=== PATIENT | female | born 1950 | race Caucasian/White ===

== ENCOUNTER 2018-10-14 10:13 | Inpatient (IN) | payer OTHER ==
[~2018-10-14] VITALS: Ht 160 cm; Wt 54.1 kg
--- NOTE | ~2018-10-14 | HC ---
[facility] [place] [address] CONSULTATION Name: TRENA PIERRE Room #: 217-P ADM IN M.R.#: [id number] Admission: 10/14/18 ������������������ Attend Phys: David Cohen MD Discharge: ������������������ Date of : 46 Report #: [id number] THIS REPORT FOR: //name// CC: David Sierra DATE OF SERVICE: 10/15/2018 TYPE OF REPORT: Wound care consultation. LOCATION: [facility]. REASON FOR CONSULTATION: Ulcers, right heel; abrasion of left knee and posterior right calf in a woman with history of cervical fracture and peripheral vascular disease of lower extremity, status post right lower extremity femoral popliteal bypass. HISTORY OF PRESENT ILLNESS: The patient is a 68-year-old woman nondiabetic who has a history of cervical fracture with extensive spinal surgery followed by a long and complicated rehabilitation. The patient has had ischemia of her right foot requiring femoral popliteal bypass. The patient has had increasing debility and immobility and is [facility] with increasing weakness, decreased mental status and decreased p.o. intake. Wound care was consulted due to noted abrasions of her right posterior calf, her left knee and her right heel. She has had a recent femoral popliteal bypass surgery for ischemia to her right foot. Wound care team was consulted. PAST MEDICAL HISTORY: 1. Cervical fracture requiring surgery approximately 6 months ago. 2. Severe peripheral vascular disease of the lower extremities with femoral popliteal bypass, right leg. 3. Chronic tobaccoism. 4. History of gastric bypass. 5. History of colon cancer with resection and chemotherapy. 6. Hypertension. REVIEW OF SYSTEMS: Poor appetite, generalized weakness, change in mental status. PHYSICAL EXAMINATION: GENERAL: Shows a thin, chronically ill-appearing elderly woman, a friend is in attendance. The patient is wearing a cervical collar. Mucous membranes are moist. LUNGS: Respirations are unlabored. ABDOMEN: Soft. EXTREMITIES: The patient has an abrasion of her left upper arm. The patient [facility] [address] [place] [address] CONSULTATION Name: TRENA PIERRE Room #: [address] [place] [address] IN .R.#: [id number] Admission: 10/14/18 ������������������ Attend Phys: David Cohen MD Discharge: ������������������ Date of : 46 Report #: [id number] has incision in the right groin with possible seroma, ultrasound ordered. Examination of both lower extremities shows skin to be slightly red. There are 2 small 0.5 x 0.5 cm open wound of the right posterior calf. There is a small stage 3, very tender ulcer of the right heel measuring 1.2 x 0.5 cm. Distal pulses are not palpable. There is a small abrasion of the left knee with a dry black eschar surrounded by some redness. IMPRESSION: 1. Debility and immobility. 2. Tobaccoism. 3. Cervical fracture with cervical collar. 4. Acute renal failure. 5. Protein-calorie malnutrition. 6. Abrasion, left upper arm. 7. Right heel stage 3 pressure ulcer, tender with a vascular component. 8. Severe peripheral vascular disease of bilateral lower extremities, status post right femoral popliteal bypass. 9. Abrasion of left knee. 10. Small abrasion to the right posterior calf. PLAN: We will dress all the wounds of her left upper arm, right posterior calf, left knee with topical Bactroban ointment and Xeroform dressing, bilateral foam boots, Offload with low air loss mattress. Ultrasound of the right groin shows a simple 3.8 x 1.3 x 2.3 cm fluid collection without pseudoaneurysm. We will continue to observe the right groin. Ultrasound of bilateral lower extremities has been ordered to assess her arterial status to both legs. Wound care team will follow her wounds. ��������������������������������������������� ���������������������������������������� By: ��������������������������������������������� 1536 0206 Mac Somers MD /nt
--- NOTE | ~2018-10-14 | HC ---
[facility] [address] CONSULTATION Name: TRENA PIERRE Room #: 217-P ADM IN M.R.#: [id number] Admission: 10/14/18 ������������������ Attend Phys: David Cohen MD Discharge: ������������������ Date of : 46 Report #: [id number] THIS REPORT FOR: //name// CC: David Sierra DATE OF SERVICE: 10/14/2018 ATTENDING PHYSICIAN: Dr. Cohen. REASON FOR CONSULTATION: Acute renal failure, dehydration and electrolyte abnormalities. HISTORY OF PRESENT ILLNESS: This 68-year-old patient has had a progressive downhill course over the last 6 months or so. She fell, broke her neck, ended up having extensive cervical spine surgery at [facility]. She has had a slow and difficult rehabilitation complicated by ischemia to her right foot requiring right fem-pop bypass. She has had progressive debility and over the last week or so has had increasing weakness, decreased mental status and decreased p.o. intake. She comes to the Emergency Room. Her creatinine is 1.1, which is actually rather elevated given her vanishingly small muscle mass. Serum sodium is 153 and there is evidence of severe volume depletion. PAST MEDICAL HISTORY: Long-term heavy smoker with diffuse vascular disease. She has had previous gastric bypass and large volume weight loss, previous colon cancer with resection and chemotherapy, now thought to be in remission, COPD, history of hypertension as well. Home medication list is not currently available. SOCIAL HISTORY: Heavy smoker as mentioned, now living in extended care facility. FAMILY HISTORY: Strongly positive for various forms of cancer. REVIEW OF SYSTEMS: GENERAL: She has done really poorly. EYES: Her vision seems to be okay. ENT: Hearing okay, not swallowing much. ENDOCRINE: No diabetes. RESPIRATORY: Easily short-winded. CARDIAC: No angina or myocardial infarction. She does have history of atrial fib and she has been on Eliquis for some time. GASTROINTESTINAL: Very poor appetite, has not been taking much in. GENITOURINARY: No difficulty with her stream. No dysuria or hematuria. NEUROLOGIC: Generalized weakness, delirium and confusion. MUSCULOSKELETAL: She has got diffuse chronic pain and has been a long time [facility] [address] [place] [address] CONSULTATION Name: TRENA PIERRE Room #: 217-P ADM IN M.R.#: [id number] Admission: 10/14/18 ������������������ Attend Phys: David Cohen MD Discharge: ������������������ Date of : 46 Report #: [id number] habitual user of opiates. LABORATORY DATA: Platelets are 202, Hemoglobin is 13.4, white count 23.3, 1% bands. Urinalysis was benign. Sodium 153, potassium 2.9, chloride 111, bicarbonate 23, creatinine 1.1, BUN 28, magnesium 2. ASSESSMENT AND PLAN: 1. Acute renal failure. Creatinine is only 1.1, but is obviously rather high given her vanishing little muscle mass and this is likely due to at least partially to volume depletion as well as partially related to underlying vascular or renal disease as a possibility. IV fluids are being given. We will need to obtain her medication list from home. 2. Hypokalemia. We will replete. 3. History of gastric bypass. There could be other nutritional deficiencies of course. Her albumin is only 1.7 and this is in the presence of likely volume depletion and she is obviously very malnourished. 4. Elevated troponin I. Cardiology has seen the patient. 5. History of fem-pop bypass with diffuse vascular disease. 6. Recent history of cervical spine fracture status post fusion surgery. ��������������������������������������������� ���������������������������������������� By: ��������������������������������������������� 1805 0141 Meño Lemus MD /nt
--- NOTE | ~2018-10-14 | HC ---
[facility] [place] [address] [place] [address] CONSULTATION Name: TRENA PIERRE Room #: 217-P ADM IN M.R.#: [id number] Admission: 10/14/18 ������������������ Attend Phys: David Cohen MD Discharge: ������������������ Date of : 48 Report #: [id number] THIS REPORT FOR: //name// CC: David Sierra HISTORY OF PRESENT ILLNESS: The patient is a 68-year-old female who is generally seen at [facility]. She is a poor historian and may be a part of reason for admission was some questionable altered mental status. She has a cervical neck collar on. Apparently, has peripheral vascular disease with what looks like a recent right lower extremity bypass, I do not have these records and equivocal troponin with also other electrolyte abnormalities. Nonspecific EKG changes are noted. She denies chest pain. No syncope or presyncope. It is not clear, I think she lives in an assisted living from what I can tell. LABORATORY DATA: Her D-dimer was elevated at 1.45. Apparently has hypernatremia, sodium is 153, Potassium 2.9, creatinine 1.1, SGOT 67, alkaline phosphatase 125. Troponin was 1.92. Lactate was 1.2. H and H 13 and 41, white count 23.3, platelets 282. Influenza A and B antigens are negative. TSH and folate, vitamin D are pending. UA appears to be relatively benign. There was a CT of the chest done without contrast, small bilateral pleural effusions, atelectasis. Low density thyroid abnormality. The abdomen was also performed and the bladder possibly some mild colitis, benign thyroid cyst it appears. There is a small collection of fluid at the right femoral artery graft site. PAST MEDICAL HISTORY: Chronic pain, on pain medications; peripheral vascular disease; delirium; possible hypovolemia it appears; DJD; history of cellulitis; hypertension; COPD; suspect prior tobacco use. MEDICATIONS: Eliquis 2.5 b.i.d., amlodipine 2.5, Tylenol, Welchol, dronabinol, Prozac, Lasix 40, Lyrica, metoprolol tartrate 25, oxycodone, prednisone, Carafate, levothyroxine, carisoprodol 250. SOCIAL HISTORY: I believe she lives in assisted living. I do not know if there is family involved. FAMILY HISTORY: Not obtainable. REVIEW OF SYSTEMS: Difficult to ascertain here as she states she has chronic pain. She denies chest pain. PHYSICAL EXAMINATION: GENERAL: She is verbalizing, somewhat oriented. VITAL SIGNS: Blood pressure 160/80, pulse 90. HEENT: Eyes reveal xanthelasmas. Pharynx is clear, slightly dry mucous [address] [address] CONSULTATION Name: TRENA PIERRE Room #: 217-P [facility] IN M.R.#: [id number] Admission: 10/14/18 ������������������ Attend Phys: David Cohen MD Discharge: ������������������ Date of : 48 Report #: [id number] membranes. NECK: Has preserved upstrokes without JVD. There is a cervical collar. LUNGS: Prolonged. CARDIAC: Distant heart tones, S1, S2. Faint holosystolic murmur noted. ABDOMEN: Slightly protuberant, nontender. EXTREMITIES: Do reveal some mild edema. I cannot palpate distal pulses. There are vascular markings that look as somewhat ischemic or possible some distal embolization. Question of cholesterol emboli syndrome, I do not know the duration or how long ago the surgery, but fairly recently. SKIN: Warm and dry with the exception of the lower extremities as noted. There are not ulcers, but appears to be ischemic distal changes. Feet are not cold. NEUROLOGIC: Appears to be nonfocal. MUSCULOSKELETAL: Generalized arthritic changes. I did not ambulate him. ASSESSMENT: 1. Mental status change with hypernatremia. 2. Peripheral vascular disease with recent right lower extremity bypass. We need to obtain records. 3. Possible cholesterol emboli syndrome or distal ischemia based on the demarcation and physical exam findings. 4. Hypertension. 5. Chronic obstructive pulmonary disease. 6. Hyperlipidemia. 7. History of cellulitis and sepsis. 8. Hyperkalemia. 9. Chronic pain. 10. Recent C-spine injury from fall. 11. Possible non-ST elevation myocardial infarction with slight elevation in troponin. RECOMMENDATIONS AND PLAN: Correct electrolytes. Try to obtain some records. Repeat a troponin in the morning and echo and EKG in the morning. Certainly need stabilization of this patient and need some review of the old records before any intervention would be indicated. I would try not to be invasive here based on the fact it looks like possibly some of this lower extremity issues is due to instrumentation or cholesterol emboli. Initiate statin therapy, aspirin, renal consult. There is some mention of a family and I will discuss in the a.m. ��������������������������������������������� ���������������������������������������� By: ��������������������������������������������� 04 39 Meño Sultana MD, FACC /nt
[2018-10-14 10:13] VITALS: BP 137/65
[~2018-10-14 10:13] MED LIST: CARAFATE 1 GM TA1 G1 PO; CARISOPRODOL250 MG PO; COLACE100 MG PO; ELIQUIS2.5 MG PO; LASIX 40 MG TAB40 M2 PO; LIPITOR80 MG PO; LOPRESSOR25 PO; MARINOL10 MG PO; MIRALAX17 GM PO; NORVASC2.5 MG PO; PERCOCET PO; PREDNISONE 5 MG5 M1 PO; PRO-STAT LIQUID30 M1 PO; TYLENOL325 MG PO; VITAMIN D5000 UNIT PO; WELCHOL 625 MG625 MG PO
[2018-10-14 10:46] LABS: URINE BILIRUBIN NEGATIVE (Negative); URINE BLOOD NEGATIVE (Negative); URINE CLARITY CLEAR; URINE COLOR YELLOW; URINE GLUCOSE-RANDOM* NEGATIVE (Negative); URINE KETONES 2+ (Negative); URINE LEUKOCYTES-REFLEX NEGATIVE (Negative); URINE NITRITE-REFLEX NEGATIVE (Negative); URINE PROTEIN (DIPSTICK) NEGATIVE (Negative); URINE UROBILINOGEN 0.2 E.U./dl (0.2-1.0)
[2018-10-14 11:48] LABS: HEMATOCRIT 41.8 % (37.0-47.0); HEMOGLOBIN 13.4 gm/dL (12.0-15.0); MCH 34.1 pg (26.0-34.0); MCHC 32.2 g/dL (28.0-37.0); RBC 3.94 mil/uL (4.20-5.00); WBC 23.3 thou/uL (4.0-11.0)
[2018-10-14 12:16] LABS: ABSOLUTE NEUTROPHILS 20.7 thou/uL (1.4-8.2)
[2018-10-14 12:17] LABS: ANISOCYTOSIS 1+; PLATELET COUNT 202 thou/uL (150-400); PLATELET ESTIMATE NORMAL
[2018-10-14 14:22] LABS: CALCIUM 8.6 mg/dL (8.5-10.1); CREATININE 1.1 mg/dL (0.6-1.0)
[2018-10-14 14:24] LABS: POTASSIUM 2.9 mmol/L (3.5-5.1)
[2018-10-14 14:27] LABS: ALBUMIN 1.7 g/dL (3.4-5.0); DIRECT BILIRUBIN 0.3 mg/dL (<0.1-0.3); TOTAL BILIRUBIN 0.5 mg/dL (<0.1-1.0); TOTAL PROTEIN 5.7 g/dL (6.4-8.2)
[2018-10-14 14:39] LABS: TROPONIN-I 1.92 ng/mL (<0.06)
--- NOTE | 2018-10-14 16:17 | NUR ---
VASCULAR ACCESS CONSULTED FOR MIDLINE. PT'S LABS,MEDS,HISTORY REVIEWED. DISCUSSED BENEFITS AND RISKS WITH PT,VERBALIZED UNDERSTANDING AND GAVE VERBAL CONSENT TO PROCEDE. PT WAS PREPPED AND DRAPED FOR MAX BARRIER PRECAUTIONS. CORINNA BRACHIAL WAS ONLY VESSEL LARGE ENOUGH TO PLACE ML. 1% LIDOCAINE GIVEN SQ. 4FR POWER MIDLINE TRIMMED TO 12CM INSERTED TO 0CM. LABS DRAWN. ML SECURED AND RELEASED FOR IMMEDIATE USE PER PROTOCOL TO BRAIN IN ER.
[2018-10-14 17:01] VITALS: BP 149/62
[2018-10-14 17:05] VITALS: BP 132/76
--- NOTE | 2018-10-14 17:31 | EKG ---
[address] [address] ELECTROCARDIOGRAM REPORT Name: KATIE PIERREYN Room #: 217-P ADM IN M.R.#: [id number] ������������������ Admission: 10/14/18 ������������������ Attend Phys: David Cohen MD Discharge: ������������������ Date of : 46 Report #: [id number] ����������������������������������������������������������������� [id number] THIS REPORT FOR: //name// [facility] ED Test Date: 2018-10-14 Test Time: 10:55:10 Pat Name: TRENA PIERRE Department: Room: 217 Gender: F Sales Representative [employer]: KURTIS : 1950 Requested By: Tahir Newsome Order Number: [id number] MD: Roberto Carlos Varghese Measurements Intervals [place] Rate: 89 P: 57 [place]: 119 QRS: 66 QRSD: 86 T: 149 QT: 343 QTc: 418 Interpretive Statements Sinus rhythm Atrial premature complexes Borderline short [place] interval Nonspecific ST and T wave abnormality No previous ECG available for comparison Electronically Signed On 10-14-2018 17:31:11 DIE MAINTENANCE TECHNICIAN by Roberto Carlos Varghese [email or web address] ��������������������������������������������� <ELECTRONICALLY SIGNED> ���������������������������������������� By: Roberto Carlos Varghese MD, [facility] ��������������������������������������������� 10/14/18 1731 D: [id number] Roberto Carlos Varghese MD, FACC /EPI
[2018-10-14 17:37] VITALS: BP 102/63
[2018-10-14] MEDS ORDERED: TYLENOL325 MG PO (17:46)
[2018-10-14 18:00] VITALS: BP 138/82
[2018-10-14] MEDS ORDERED: PROZAC20 MG PO (18:21)
[2018-10-14] MEDS ORDERED: LYRICA 50 MG50 MG PO (18:25)
[2018-10-14] MEDS ORDERED: PROTONIX40 M1 PO (18:58)
[2018-10-14] MEDS ORDERED: SYNTHROID25 MC1 PO ×2 (19:01)
[2018-10-14 19:18] VITALS: BP 160/84
[2018-10-15 00:14] VITALS: BP 125/65
--- NOTE | 2018-10-15 02:21 | NUR ---
ASSUMED CARE 1899. VSS. ASSESSMENT CHARTED. PT ALERT TO SELF/PLACE CONFUSED AND FORGETFUL AT TIMES. SISTER AND NEICE AT BEDSIDE AT BEGINNNING FOR SHIFT. PT C/O GENERALIZED BODY PAIN, URGENT CARE TECHNICIAN NOTIFIED, ORDERS GIVEN PRN PAIN MEDS PER EMAR. PT HAS C-COLLAR IN PLACE- PAST FALL AND SPINAL FUSION 04/29. MULTIPLE BRUISING AND SCABS, SKIN TEAR/HEEL ULCER- ALL PICS DOCUMENTED WOUND CARE CONSULTED. KRIS SAW PATIENT THIS SHIFT. TROPONIN TRENDING DOWN. PLAN FOR LABS THIS AM. WILL CONTINUE TO MONITOR AND WITH POC.
[2018-10-15 03:39] LABS: ALBUMIN 1.2 g/dL (3.4-5.0); CALCIUM 7.2 mg/dL (8.5-10.1); CREATININE 0.9 mg/dL (0.6-1.0); MAGNESIUM 1.7 mg/dL (1.8-2.4); PHOSPHORUS 2.6 mg/dL (2.5-4.9); POTASSIUM 3.8 mmol/L (3.5-5.1)
[2018-10-15 04:29] LABS: HEMATOCRIT 34.4 % (37.0-47.0); MCH 33.5 pg (26.0-34.0); MCHC 31.8 g/dL (28.0-37.0); MCV 105.3 fL (80.0-100.0); RBC 3.26 mil/uL (4.20-5.00); RDW 16.7 % (10.5-14.5); WBC 13.8 thou/uL (4.0-11.0)
[2018-10-15 04:34] LABS: HEMOGLOBIN 10.9 gm/dL (12.0-15.0)
[2018-10-15 04:40] VITALS: BP 147/83
[2018-10-15 06:26] LABS: FOLIC ACID 6.9 ng/mL (8.6-58.9); TSH 11.011 uIU/mL (0.358-3.740)
[2018-10-15 07:41] VITALS: BP 100/66
--- NOTE | 2018-10-15 08:47 | EKG ---
[address] [place] [address] ELECTROCARDIOGRAM REPORT Name: TRENA PIERRE Room #: 217-P ADM IN M.R.#: [id number] ������������������ Admission: 10/14/18 ������������������ Attend Phys: David Cohen MD Discharge: ������������������ Date of : 46 Report #: [id number] ����������������������������������������������������������������� [id number] THIS REPORT FOR: //name// [facility] Test Date: 2018-10-15 Test Time: 06:33:12 Pat Name: TRENA PIERRE Department: Room: 217 P Gender: F Building Carpenter: : 1950 Requested By: Kirstin Severino Order Number: [id number] MD: Roberto Carlos Varghese Measurements Intervals [place] Rate: 64 P: 33 [place]: 121 QRS: 23 QRSD: 85 T: 98 QT: 463 QTc: 478 Interpretive Statements Sinus rhythm Nonspecific T abnormalities, lateral leads Compared to ECG 10/14/2018 10:55:10 Atrial premature complex(es) no longer present Electronically Signed On 10-15-2018 8:47:06 DECORATOR STORE by Roberto Carlos Varghese [email or web address] ��������������������������������������������� <ELECTRONICALLY SIGNED> ���������������������������������������� By: Roberto Carlos Varghese MD, [facility] ��������������������������������������������� 10/15/18 0847 2 Roberto Carlos Varghese MD, [facility] /EPI
--- NOTE | 2018-10-15 10:16 | 2DMMODE ---
[facility] [place] [address] 2 D/M-MODE ECHOCARDIOGRAM Name: TRENA PIERRE Room #: 217-P ADM IN M.R.#: [id number] ������������� Admission: 10/14/18 ������������� Attend Phys: David Cohen MD Discharge: ��� ������������� ��� Date of : 46 Date of Service: 10/15/18 1016 �� Report #: [id number] �������� ��������������������������������������������[id number] THIS REPORT FOR: //name// APPROVED REPORT Study performed: 10/15/2018 09:15:17 EXAM: Comprehensive 2D, Doppler, and color-flow Echocardiogram Patient Location: Bedside Room #: 217 Status: routine BSA: 1.55 HR: 92 bpm BP: 100/66 mmHg Rhythm: NSR Other Information Study Quality: Technically DifficultTechnically Limited Indications COPD Elevated Troponin Hypertension/HDD 2D Dimensions RVDd: 20.52 mm IVC: 17.00 mm Volumes Left Atrial Volume (Systole) Single Plane 4CH: 50.81 mL Single Plane 2CH: 52.79 mL LA ESV Index: 36.00 mL/m2 Aortic Valve AoV Peak Toby.: 1.23 m/s AO Peak Gr.: 6.04 mmHg LVOT Max P.51 mmHg LVOT Max V: 1.06 m/s Mitral Valve E/A Ratio: 0.9 MV Decel. Time: 289.25 ms MV E Max Toby.: 1.06 m/s MV A Toby.: 1.19 m/s MV PHT: 83.88 ms [facility] [address] [place] [address] 2 D/M-MODE ECHOCARDIOGRAM Name: TRENA PIERRE Room #: 217-P [facility] IN .R.#: [id number] ������������� Admission: 10/14/18 ������������� Attend Phys: David Cohen MD Discharge: ��� ������������� ��� Date of : 46 Date of Service: 10/15/18 1016 �� Report #: [id number] �������� ��������������������������������������������[id number] IVRT: 119.95 ms Pulmonary Valve PV Peak Toby.: 0.73 m/s PV Peak Gr.: 2.11 mmHg Pulmonary Vein P Vein S: 0.60 m/s P Vein A: 0.27 m/s P Vein D: 0.27 m/s P Vein A Dur.: 106.1 msec P Vein S/D Ratio: 2.22 Tricuspid Valve TR Peak Toby.: 2.45 m/s TR Peak Gr.: 23.98 mmHg PA Pressure: 34.00 mmHg Left Ventricle The left ventricle is normal size. Regional wall motion is not well visualized but grossly normal. There is normal left ventricular wall thickness. The left ventricular systolic function is normal. The left ventricular ejection fraction is within the normal range. LVEF is 60-65%. Grade I - abnormal relaxation pattern. Right Ventricle The right ventricle is normal size. The right ventricular systolic function is normal. Atria Left atrium is dilated. The right atrium size is normal. Echodensity in right atrium, may represtent a catheter tip. Clinical and/or radiologic correlation recommended. Aortic Valve The aortic valve is calcified. No aortic regurgitation is present. There is no aortic valvular stenosis. Mitral Valve Heavy mitral annular calcification. Sclerotic leaflets. Mild mitral regurgitation. No evidence of mitral valve stenosis. Tricuspid Valve The tricuspid valve is normal in structure. There is trace tricuspid regurgitation. Estimated PAP 35 mmHg There is mild pulmonary hypertension. Pulmonic Valve The pulmonary valve is normal in structure. There is no pulmonic [facility] [address] [place] [address] 2 D/M-MODE ECHOCARDIOGRAM Name: TRENA PIERRE Room #: 217-P ADM IN M.R.#: [id number] ������������� Admission: 10/14/18 ������������� Attend Phys: David Cohen MD Discharge: ��� ������������� ��� Date of : 46 Date of Service: 10/15/18 1016 �� Report #: [id number] �������� ��������������������������������������������[id number] valvular regurgitation. Great Vessels The aortic root is normal in size. IVC is normal in size and collapses <50% with inspiration. Pericardium There is no pericardial effusion. Critical Notification Critical Value: Yes <Conclusion> The left ventricular systolic function is normal. Regional wall motion is not well visualized but grossly normal. LVEF is 60-65%. Mild diastolic dysfunction Echodensity in right atrium, may represtent a catheter tip. Clinical and/or radiologic correlation recommended. The aortic valve is calcified. No aortic regurgitation or stenosis. Heavy mitral annular calcification. Sclerotic leaflets. Mild mitral regurgitation. There is trace tricuspid regurgitation. Estimated pulmonar artery pressure of 35 mmHg There is no pericardial effusion. ��������������������������������������������� <ELECTRONICALLY SIGNED> ���������������������������������������� By: Roberto Carlos Varghese MD, FACC ��������������������������������������������� 10/15/18 1016 1016 [id number] Roberto Carlos Varghese MD, FACC /INF
[2018-10-15 11:52] VITALS: BP 133/70
--- NOTE | 2018-10-15 13:21 | NUR ---
WOUND CONSULT: PT. WAS SEEN TODAY BY DR. SERNA AND MYSELF. PT. HAS MULTIPLE WOUNDS ON HER BODY. PT. HAS A SKIN TEAR TO HER LEFT UPPER ARM. ABRASIONS TO HER LEFT KNEE AND RIGHT LATERAL CALF. STAGE 3 PRESSURE ULCER TO HER RIGHT HEEL. PT. COMPLAINTS OF ALOT OF PAIN WITH TOUCH HER LEGS OR ASSESEMENT OF WOUNDS. RECOMMENDATIONS: WOUND CARE TO ALL SITES: GENTLY CLEANSE WITH WOUND CLEANSER OR NORMAL SALINE, APPLY BACTROBAN TO THE WOUND BED, COVER WITH XEROFORM, ABD, KERLIX, SECURE WITH TAPE. COMPLETE CARES DAILY. PT. AND STAFF NURSE WERE INSTRUCTED ON PLAN OF CARE.
--- NOTE | 2018-10-15 14:19 | NUR ---
Pts folate level is 6.9 low, recommend to start on folic acid supplementation.
--- NOTE | 2018-10-15 14:59 | NUR ---
PT. RESIDES AT [facility] FAXED CLINICAL UPDATE TO FACILITY AND SPOKE WITH DENIZ DYER SHE RECEIVED UPDATE. DCP TO FOLLOW.
--- NOTE | 2018-10-15 15:27 | NUR ---
Patient admits from [facility] for AMS. Patient with hx of fall [facility]. She has broken neck and wears a brace. Face sheet from [facility] appears intial date for admission in . Likely she is ltc. She has [facility] ins. Visited with patient who is aware she was at [facility] and reports she does not plan to return to [facility]. Left message with son Srinivasa on 2 numbers and spoke with liamelanie at [facility] who reports patient is ltc. casemgt following for dc planning.
[2018-10-15 15:40] VITALS: BP 124/63
[2018-10-15 19:37] VITALS: BP 102/63
--- NOTE | 2018-10-16 04:58 | NUR ---
ASSUMED PT CARE AT 1900 WITH BEDSIDE REPORT TAKEN. PT IS ALERT WITH FAMILY AT BEDSIDE, NO SIGN OF DISTRESS NOTED IN PT, PT IS COMPLAINING OF GENERALIZED PAIN. ASSESSMENT DONE AND DOCUMENTED. PT IS STABLE. CONTINUE NURSING POC.
[2018-10-16 05:40] VITALS: BP 114/68
[2018-10-16 07:02] LABS: ALBUMIN 1.2 g/dL (3.4-5.0); CALCIUM 7.7 mg/dL (8.5-10.1); CREATININE 0.9 mg/dL (0.6-1.0); POTASSIUM 3.7 mmol/L (3.5-5.1)
--- NOTE | 2018-10-16 07:49 | NUR ---
ASSUMED CARE OF PT AT 0700. PT RESTING IN BED WITH CALL LIGHT IN REACH. PT COMPLAINS OF PAIN IN FINGERS AND BACK. PAIN MEDICATION NOT DUE AT THE MOMENT. PT REPOSITIONED IN BED AND WARM BLANKETS APPLIED. NECK BRACE IN PLACE. WILL CONTINUE TO MONITOR.
[2018-10-16 08:13] VITALS: BP 115/62
[2018-10-16] MEDS ORDERED: SYNTHROID50 MCG PO (10:24)
--- NOTE | 2018-10-16 12:25 | NUR ---
Pt dcing back to [facility] today. Dc shoe lay out planner to finalize dc transport and fax orders to the SNF. They are trying to get ins auth for SNF stay for some more therapies. chart copy in progress. Nursing to call report once dc time is confirmed. Dc shoe lay out planner to confirm dc time with pt's son as well.
[2018-10-16 12:28] VITALS: BP 112/73
--- NOTE | 2018-10-16 12:39 | NUR ---
PT. DISCHARGING TODAY BACK TO [facility] FAXED DC ORDERS/SUMMARY TO FACILITY SPOKE WITH DENIZ IN ADM. SHE RECEIVED DC ORDERS AND ARRANGED TRANSPORT VIA [facility] FOR [id number] TODAY. DCP LEFT MS WITH PT'S SON (RACHANA) OF DISCHARGE AND TIME OF TRANSPORT. UNIT NOTIFIED AND CHART COPY PER US. RN TO CALL REPORT TO [phone].
== END 2018-10-16 14:59 | DRG 682 ==
LOC: ER 10:13 → EROBS 16:34 → 2N 16:34
PROVIDERS: Emergency Medicine; Hospitalist; Internal Medicine Nephrology; ADMIT Hospitalist
PROC: 05HY33Z Insertion of Infusion Device into Upper Vein, Percutaneous Approach (ICD-10-PCS; principal; 2018-10-14)
DX: N17.9 Acute kidney failure, unspecified (principal); G93.41 Metabolic encephalopathy; L89.613 Pressure ulcer of right heel, stage 3; I21.4 Non-ST elevation (NSTEMI) myocardial infarction; E87.0 Hyperosmolality and hypernatremia; E46 Unspecified protein-calorie malnutrition; E87.6 Hypokalemia; R41.0 Disorientation, unspecified; J44.9 Chronic obstructive pulmonary disease, unspecified; I10 Essential (primary) hypertension; G89.29 Other chronic pain; I73.9 Peripheral vascular disease, unspecified; M19.90 Unspecified osteoarthritis, unspecified site; E78.5 Hyperlipidemia, unspecified; E87.5 Hyperkalemia; S40.812A Abrasion of left upper arm, initial encounter; S80.811A Abrasion, right lower leg, initial encounter; D72.829 Elevated white blood cell count, unspecified; E86.0 Dehydration; I95.9 Hypotension, unspecified; S80.212A Abrasion, left knee, initial encounter; S19.9XXA Unspecified injury of neck, initial encounter; E03.9 Hypothyroidism, unspecified; F32.9 Major depressive disorder, single episode, unspecified; M62.84 Sarcopenia; Z88.7 Allergy status to serum and vaccine; Z85.038 Personal history of other malignant neoplasm of large intestine; Z92.21 Personal history of antineoplastic chemotherapy; Z98.84 Bariatric surgery status; I25.2 Old myocardial infarction; Z87.81 Personal history of (healed) traumatic fracture; Z68.21 Body mass index [BMI] 21.0-21.9, adult; Z79.52 Long term (current) use of systemic steroids; W18.39XA Other fall on same level, initial encounter; Y93.89 Activity, other specified; Y92.89 Other specified places as the place of occurrence of the external cause; Y99.8 Other external cause status; Z79.899 Other long term (current) drug therapy
CPT/HCPCS: 10081; 27000

== ENCOUNTER 2018-10-22 06:14 | Inpatient (IN) | payer OTHER ==
[~2018-10-22] VITALS: Ht 157.5 cm; Wt 40.8 kg
[2018-10-22] VITALS (13 sets, daily range): BP systolic 60–123; BP diastolic 33–98
--- NOTE | ~2018-10-22 | HC ---
[facility] [place] [address] CONSULTATION Name: TRENA PIERRE Room #: 247-P [facility] M.R.#: [id number] Admission: 10/22/18 ������������������ Attend Phys: David Cohen MD Discharge: 10/22/18 ������������������ Date of : 46 Report #: [id number] THIS REPORT FOR: //name// CC: David Sierra REASON FOR CONSULTATION: Acute kidney injury. HISTORY OF PRESENT ILLNESS: The patient was evaluated on 10/22/2018 in the Emergency Room. Case was discussed with Dr. Cohen, Dr. Payne in the Emergency Room. She is well known to me. She presented to the Emergency Room with abdominal pain and bloody stool. She was in the hospital a few days ago and was found at that time to have an elevated creatinine, hypokalemia and hypernatremia. She has colon cancer. The patient is status post chemo and radiotherapy. She has extensive peripheral vascular disease. She was stabilized from the medical perspective during her previous admission and was sent to [facility]. Because of the bloody stool, she was brought to the emergency room. Unfortunately, the patient was found to be in severe metabolic acidosis with a lactic acid of around 11. She was also hypoglycemic. She had an acute kidney injury and I was consulted to manage her acute kidney injury. Son was at bedside. The details of the history were obtained from the son. PAST MEDICAL HISTORY: 1. Hypertension. 2. Colon cancer. 3. Peripheral vascular disease. 4. Hyperlipidemia. 5. Chronic obstructive pulmonary disease. 6. Recent neck surgery. REVIEW OF SYSTEMS: Unobtainable given the patient's mental status. PAST SURGICAL HISTORY: 1. Recent cervical surgery. 2. Colon cancer. MEDICATIONS: 1. Eliquis. 2. Atorvastatin. 3. MiraLax. 4. Levothyroxine. 5. Prednisone. 6. Protonix. SOCIAL HISTORY: No drug or alcohol abuse. She [facility] in [place] [facility]. [address] [address] CONSULTATION Name: TRENA PIERRE Room #: 247-P [facility].#: [id number] Admission: 10/22/18 ������������������ Attend Phys: David Cohen MD Discharge: 10/22/18 ������������������ Date of : 46 Report #: [id number] FAMILY HISTORY: Unobtainable given the patient's mental status. PHYSICAL EXAMINATION: VITAL SIGNS: When examined in the Emergency Room, she was tachycardic with a pulse of around 119 and blood pressure was 71/45. HEAD AND NECK: Emaciated and cachectic. CHEST: No crackles. CARDIOVASCULAR: No rub. ABDOMEN: Extremely tender. EXTREMITIES: Lower extremities +2 edema. Upper extremities cyanotic with +1 edema. LABORATORY DATA: Reviewed. Hemoglobin was 8.4. Chemistry revealed sodium of 142, potassium of 3.5, carbon dioxide of 9, BUN of 22, creatinine of 1.8. CT of the abdomen revealed severe and extensive pneumatosis within multiple lobes of the proximal to mid small bowel with free intraperitoneal air. ASSESSMENT AND IMPRESSION: 1. Severe metabolic acidosis. 2. Acute kidney injury. 3. Perforated viscus. 4. Severe peripheral vascular disease. 5. Unfortunately, this is not a survivable situation. PLAN: 1. The patient was appropriately resuscitated in the Emergency Room with intravenous fluid, blood transfusion along with blood products were initiated. All of her anticoagulant was discontinued. I will reformulate her IV fluid to have some bicarbonate to correct her acidosis. Admission to the ICU. 2. Antibiotics had been initiated appropriately. 3. Surgical consultation. 4. This is an end of life event for the patient and we should discuss comfort and palliative care given the fact that she is not a surgical candidate. She has an evidence of DIC and will likely not survive the current event. ��������������������������������������������� ���������������������������������������� By: ��������������������������������������������� [id number] Joni Bruner MD /nt
[~2018-10-22 06:14] MED LIST changes: +LYRICA 50 MG50 MG PO; +PROTONIX40 M1 PO; +PROZAC20 MG PO; +SYNTHROID25 MC1 PO; +SYNTHROID50 MCG PO
[2018-10-22] MEDS ORDERED: PRO-STAT LIQUID30 M1 PO (06:30)
[2018-10-22 07:28] LABS: BE(vivo) -17.7 mmol/L (-2 to +3); HCO3 8.7 mmol/L (22.0-26.0); PCO2 VENOUS 22.8 mmHg (41.0-51.0); PO2 VENOUS 81.1 mmHg (35.0-45.0)
[2018-10-22 07:29] LABS: HEMATOCRIT 26.6 % (37.0-47.0); HEMOGLOBIN 8.4 gm/dL (12.0-15.0); MCHC 31.8 g/dL (28.0-37.0); MCV 107.1 fL (80.0-100.0); PLATELET COUNT 169 thou/uL (150-400); RBC 2.48 mil/uL (4.20-5.00); RDW 15.9 % (10.5-14.5); WBC 4.4 thou/uL (4.0-11.0)
[2018-10-22 07:41] LABS: ALBUMIN 0.6 g/dL (3.4-5.0); CALCIUM 6.6 mg/dL (8.5-10.1); CREATININE 2.1 mg/dL (0.6-1.0); POTASSIUM 4.1 mmol/L (3.5-5.1); TOTAL BILIRUBIN 0.4 mg/dL (<0.1-1.0); TOTAL PROTEIN 2.7 g/dL (6.4-8.2)
[2018-10-22 07:45] LABS: TROPONIN-I 2.19 ng/mL (<0.06)
--- NOTE | 2018-10-22 08:11 | EKG ---
[place] [address] [facility] [place] [address] ELECTROCARDIOGRAM REPORT Name: TRENA PIERRE [facility] [id number] ������������������ Admission: 10/22/18 ������������������ Attend Phys: Discharge: ������������������ Date of : 46 Report #: [id number] ����������������������������������������������������������������� [id number] THIS REPORT FOR: //name// [facility] ED Test Date: 2018-10-22 Test Time: 06:21:58 Pat Name: TRENA PIERRE Department: Room: Gender: F Entertainment Reporter: DYLAN : 1950 Requested By: Shalini Payne Order Number: [id number] MD: Anirudh Nguyen Measurements Intervals Force Rate: 112 P: 57 KS: 113 QRS: 28 QRSD: 74 T: 88 QT: 347 QTc: 474 Interpretive Statements Sinus tachycardia Borderline low voltage, extremity leads Nonspecific T abnormalities, lateral leads Compared to ECG 10/15/2018 06:33:12 Sinus rhythm no longer present T-wave abnormality still present Electronically Signed On 10-22-2018 8:11:17 CDT by Anirudh Nguyen [email or web address] ��������������������������������������������� <ELECTRONICALLY SIGNED> ���������������������������������������� By: Anirudh Nguyen MD ��������������������������������������������� 10/22/18810 0 0 Anirudh Nguyen MD /HARPREET
[2018-10-22 08:20] LABS: D-DIMER 0.97 ug/mLFEU (0.19-0.50); FIBRINOGEN 156.9 mg/dL (210-360)
[2018-10-22 08:24] LABS: URINE BLOOD 3+ (Negative); URINE GLUCOSE-RANDOM* NEGATIVE (Negative); URINE KETONES TRACE (Negative); URINE NITRITE-REFLEX NEGATIVE (Negative); URINE PROTEIN (DIPSTICK) 2+ (Negative); URINE SPECIFIC GRAVITY 1.015 (1.005-1.035)
[2018-10-22 08:27] LABS: ICTOTEST (BILI CONFIRMATORY) Negative (Negative); URINE BILIRUBIN NEGATIVE (Negative); URINE CLARITY CLOUDY; URINE COLOR BROWN; URINE LEUKOCYTES-REFLEX 1+ (Negative)
[2018-10-22 08:35] LABS: AMP/METHAMP Negative (Negative); BARBITURATES Negative (Negative); BENZODIAZEPINES Negative (Negative); COCAINE Negative (Negative); METHADONE Negative (Negative); OPIATES POSITIVE (Negative); PCP Negative (Negative)
[2018-10-22 08:49] LABS: HYALINE CASTS 0-3 Few /LPF (None Seen); SQUAMOUS 4-10 Moderate /LPF (0-3)
[2018-10-22 08:50] LABS: BACTERIA-REFLEX >30 Many /HPF (None Seen); CRYSTALS None Seen /LPF (None Seen); MUCUS 0-3 Light strn/LPF (None Seen); URINE RBC 0-2 Rare /HPF (0-2); URINE WBC-REFLEX >25 Many /HPF (0-5)
[2018-10-22 08:51] LABS: WBC CLUMPS Occasional (None Seen)
[2018-10-22 09:57] LABS: ABSOLUTE NEUTROPHILS 3.2 thou/uL (1.4-8.2); METAMYELOCYTES 17 %; MYELOCYTES 2 %
[2018-10-22 09:58] LABS: ANISOCYTOSIS SLIGHT; BURR CELLS OCCASIONAL; MACROCYTES 1+; POIKILOCYTOSIS SLIGHT
[2018-10-22 10:24] LABS: INR 2.7; PROTIME 27.9 Seconds (9.3-11.4)
[2018-10-22 10:26] LABS: APTT 86.8 Seconds (24.5-32.8)
[2018-10-22 11:51] LABS: HEMATOCRIT 46.8 % (37.0-47.0)
[2018-10-22 11:52] LABS: HEMOGLOBIN 15.2 gm/dL (12.0-15.0)
[2018-10-22 12:01] LABS: CALCIUM 6.8 mg/dL (8.5-10.1); CREATININE 1.8 mg/dL (0.6-1.0); POTASSIUM 3.5 mmol/L (3.5-5.1)
--- NOTE | 2018-10-22 13:37 | NUR ---
Patient arrived to room 247 from ED at 1045. Patient was initally awake, but drowsy, voicing needs, c/o pain all over. IVF running as ordered from ED. New order for bicarb drip initiated. Seen by hosptialist, GI consult, renal consult, surg consult. Several family members at bedside. They voice understanding of poor prognosis and wish to pursue palliative care measures. Code status to be changed, and palliative consult placed. Continue to monitor and offer emotional support.
--- NOTE | 2018-10-22 13:58 | NUR ---
Patient family notified nursing that they are ready to proceed with comfort measures. Dr. Cohen notified. NO CODE status updated in computer. Levophed gtt, and IVF turned off. Morphine drip titrated for comfort. Continue to monitor.
--- NOTE | 2018-10-22 14:11 | NUR ---
Pt newly admitted to ICU via the er in critical condition. Pt known to cm from discharge last week back to [facility]. The pt is ltc there but was being skilled for therapy after her recent hospital stay. Chart reviewed and discussed with the care team. Several family members are at bedside. The attending has spoken with the pt's son Srinivasa regarding her prognosis. The family is discussing code status and possible comfort care d/t her prognosis. Will remain available for support as needed. Pt was a full code at the custodial.
--- NOTE | 2018-10-22 18:25 | NUR ---
Patient remained on morphine drip for comfort. Also rec'd IVP ativan as needed per comfort care orders. Several family members at bedside. Patient chris heart rate to low 30s. Nursing entered room to comfort family. Patient then continued to decline in heart rate until asystole. Time of 1743, pronounced bedside by 2 RNs.
== END 2018-10-22 17:43 | DRG 871 ==
LOC: ER 06:14 → EROBS 08:43 → ICU 08:43
PROVIDERS: Student in an Organized Health Care Education/Training Program; ADMIT Hospitalist
DX: A41.9 Sepsis, unspecified organism (principal); D65 Disseminated intravascular coagulation [defibrination syndrome]; K55.059 Acute (reversible) ischemia of intestine, part and extent unspecified; K63.1 Perforation of intestine (nontraumatic); N17.9 Acute kidney failure, unspecified; K92.2 Gastrointestinal hemorrhage, unspecified; Z51.5 Encounter for palliative care; R73.9 Hyperglycemia, unspecified; E03.9 Hypothyroidism, unspecified; E78.5 Hyperlipidemia, unspecified; R65.20 Severe sepsis without septic shock; I10 Essential (primary) hypertension; J44.9 Chronic obstructive pulmonary disease, unspecified; I73.9 Peripheral vascular disease, unspecified; F32.9 Major depressive disorder, single episode, unspecified; Z98.1 Arthrodesis status; Z88.5 Allergy status to narcotic agent; Z88.7 Allergy status to serum and vaccine; Z85.038 Personal history of other malignant neoplasm of large intestine; Z92.21 Personal history of antineoplastic chemotherapy; Z92.3 Personal history of irradiation
CPT/HCPCS: 10078